=== PATIENT | female | born 1995 | race African-American/Black ===

== ENCOUNTER 2020-12-18 05:53 | Emergency (ER) | payer OTHER ==
[~2020-12-18] VITALS: Ht 162.6 cm; Wt 64.0 kg
[2020-12-18 06:41] LABS: BASOPHILS % 0.4 % (0.0-2.0); EOSINOPHILS % 2.4 % (0.0-5.0); HEMATOCRIT. 38.2 % (36.0-48.0); HEMOGLOBIN. 12.3 g/dL (12.0-16.0); LYMPHOCYTES % 19.4 % (20.0-50.0); MEAN CORPUSCULAR HEMOGLOBIN 26.5 pg (28.0-32.0); MEAN CORPUSCULAR VOLUME 82.4 fL (81.0-99.0); MEAN PLATELET VOLUME 10.1 fl (7.4-10.4); MONOCYTES % 9.1 % (2.0-8.0); NEUTROPHILS % 68.7 % (40.0-76.0); PLATELET 209 x1000/uL (130-400); RED BLOOD CELL COUNT 4.63 mill/uL (4.2-5.4); RED CELL DISTRIBUTION WIDTH 14.6 % (11.6-14.6)
[2020-12-18 06:42] LABS: CHLORIDE 111 mEq/L (98-107)
[2020-12-18 06:47] LABS: ETHANOL BLOOD < 10 mg/dL
[2020-12-18 09:14] VITALS: BP 122/65
== END 2020-12-18 09:32 | disposition home or self-care (01) ==
LOC: ER 05:53
DX: R56.9 Unspecified convulsions (principal)
CPT/HCPCS: 36415; 80053; 80320; 82962; 85025; 93005; 99285; G0480